=== PATIENT | female | born 1950 | race Caucasian/White ===

== ENCOUNTER 2023-09-13 12:00 | Emergency (ER) | payer MEDICARE, SELFPAY ==
[2023-09-13] VITALS (9 sets, daily range): BP systolic 129–132; BP diastolic 70–75; PULSE 48–67; RESP 16; TEMP 36.3; O2SAT 95–97; BMI 34.9
--- NOTE | 2023-09-13 12:35 | CT_ITS ---
Patient: JOSEPH SHIPLEY Facility:?[facility] Patient ID:?[id number] Site Patient ID:?[id number]. Site :?[id number] Study:?CT-Head WITHOUT-09/13/2023 1:17:02 PM Ordering Physician:?DR. QUEZADA Final Report: Indication: DIZZINESS. HX OF BLEED 2022 Technique: CT Head without IV contrast Comparison: None Findings: Brain Parenchyma: Global cortical involutional changes. No acute infarct, acute intracranial hemorrhage, mass effect or midline shift. Periventricular and supraventricular white matter hypodensity, suggestive of chronic microvascular ischemic changes. Ventricles: No hydrocephalus. Mild ventricular enlargement, commensurate with the degree of cortical involutional changes and sulcal prominence. Extra-axial Spaces: No abnormal fluid collection. Paranasal sinuses: No significant mucosal thickening. Orbits: Unremarkable. Mastoid Sinuses: Unremarkable. Cranium: No acute fracture. Soft tissues: Unremarkable. Impression: No evidence of an acute intracranial process. Please note that all CT scans at this facility use dose modulation, iterative reconstruction, and/or weight-based dosing when appropriate to reduce radiation dose to as low as reasonably achievable. Dictated by Eren East MD @ 09/13/2023 1:29:05 PM Signed by:?Eren East MD @09/13/2023 1:29:05 PM (Electronic Signature)
[2023-09-13 12:53] LABS: Appearance Urine Clear (Clear); Bilirubin Urine Negative (Negative); Blood Urine Negative (Negative); Color Urine Yellow (Yellow); Glucose Urine Negative (Negative); Ketones Urine Negative (Negative); Leukocyte Esterase Urine Negative (Negative); Nitrite Urine Negative (Negative); Protein Urine Negative (Negative); Urobilinogen Urine 0.2 (0.2-1.0); pH Urine 5.5 (5.0-8.5)
[2023-09-13 13:06] LABS: Basophils Absolute Auto 0.04 K/uL (0.00-0.30); Basophils Percent Auto 0.8 % (0.0-3.0); Eosinophils Absolute Auto 0.08 K/uL (0.00-0.50); Eosinophils Percent Auto 1.5 % (0.0-7.0); Hematocrit 46.4 % (33.0-51.0); Hemoglobin* 15.5 gm/dL (12.0-16.0); Immature Granulocytes Abs Auto 0.07 K/uL (0.00-0.30); Immature Granulocytes Pct Auto 1.3 %; Lymphocytes Absolute Auto 1.64 K/uL (0.90-2.90); Mean Corpuscular HGB Conc 33 gm/dL (32-36); Mean Corpuscular Hemoglobin 30 pg (26-34); Mean Corpuscular Volume 88 fL (80-100); Monocytes Percent Auto 8.9 % (0.0-11.0); Neutrophils Absolute Auto 2.99 K/uL (1.7-7.0); Neutrophils Percent Auto 56.5 % (42.0-72.0); Platelet Count* 279 K/uL (140-440); RDW Coefficient of Variation % 12.4 % (11.5-15.5); Red Blood Count 5.26 m/uL (4.00-5.20); White Blood Count* 5.29 K/uL (4.50-11.00)
[2023-09-13 13:14] LABS: Slide Review Reflex No
--- NOTE | 2023-09-13 13:15 | ED.GENADULT ---
HPI - General Adult General Date Seen: 09/13/23 Chief complaint: Unspecified Complaint, Adult Stated complaint: Nausea, dizzy, body aches Time Seen by Provider: 09/13/23 12:28 Source: patient Mode of arrival: ambulatory Limitations: no limitations History of Present Illness HPI narrative: Patient is a 72-year-old female presenting for multiple different symptoms. For the past several months she has been having nausea, body aches, headache, dizziness. Headache seems more to be on the right side but states for the past few days symptoms have been getting worse. She states she last saw her neurologist 3 weeks ago. Has been taking meclizine though tried help with the dizziness with no improvement. Does notice worsening symptoms when she is up and moving around. Has also been having memory issues for the past 4 months that her things is also getting worse. Does states she will wake up every few days and have large emesis. Has been otherwise eating and drinking all right. Has had multiple TBIs in the past with a hemorrhagic stroke several months ago but no recent falls that they are aware of. Patient denies chest pain, shortness of breath, abdominal pain, diarrhea, constipation, fevers, chills, weakness, numbness, vision changes. Related Data Previous Rx's Medication Instructions Recorded ondansetron 4 mg disintegrating 4 mg PO Q6H #20 tabs 09/13/23 tablet Allergies Allergy/AdvReac Type Severity Reaction Status Date / Time No Known Drug Allergies Allergy Verified 09/13/23 12:14 Review of Systems Status of ROS: Reports: 10 or more systems reviewed and unremarkable except as noted in History and below PFSH PFS Social History Smoking Status: Never smoker How often do you have a drink containing alcohol: never AUDIT-C Alcohol total score: 0 Non-prescribed substance use: denies use Exam Narrative: Exam Narrative: Const: Well-nourished, Well-developed, in mild distress Eyes: PERRL, no conjunctival injection, and symmetrical lids HENT: Atraumatic external nose and ears. Moist mucous membranes. Neck: Symmetric, trachea midline, No thyromegaly. CVS: RRR, No murmurs or gallops. Peripheral pulses 2+ and equal in all extremities RESP: Unlabored respiratory effort. Clear to auscultation bilaterally. GI: Nontender/Nondistended, No rebound or guarding. MSK:Extremities w/o deformity, Normal Active ROM Skin: Warm, Dry. No rashes or lesions. Neuro: Normal Muscle tone, No focal neurological deficits. Psych: Awake, Alert, & Oriented x3. Appropriate mood and affect. Const: Vital Signs, click to edit/add: Vital Signs - 24 hr 09/13/23 12:08 Temperature 97.3 F L Pulse Rate [Left P ulse Oximeter] 55 L Respiratory Rate 16 Blood Pressure [Ri ght Upper Arm] 132/75 Pulse Oximetry 95 Course Vital Signs Vital signs: Initial Vital Signs Temperature 97.3 F L 09/13/23 12:08 Temperature Source Temporal Artery Scan 09/13/23 12:08 Pulse Rate 55 L 09/13/23 12:08 Respiratory Rate 16 09/13/23 12:08 Blood Pressure 132/75 09/13/23 12:08 Blood Pressure Mean 94 09/13/23 12:08 Blood Pressure Position Sitting 09/13/23 12:08 Pulse Oximetry 95 09/13/23 12:08 Vital Signs Temperature 97.3 F L 09/13/23 12:08 Pulse Rate 55 L 09/13/23 12:08 Respiratory Rate 16 09/13/23 12:08 Blood Pressure 132/75 09/13/23 12:08 Pulse Oximetry 95 09/13/23 12:08 Temperature 97.3 F L 09/13/23 12:08 Pulse Rate 55 L 09/13/23 12:08 Respiratory Rate 16 09/13/23 12:08 Blood Pressure 132/75 09/13/23 12:08 Pulse Oximetry 95 09/13/23 12:08 Medications Administered Medications: Discontinued Medications Generic Name Dose Route Start Last Admin Trade Name Freq PRN Reason Stop Dose Admin Acetaminophen 1,000 mg 09/13/23 13:53 09/13/23 14:06 Acetaminophen 500 Mg Tablet PO 09/13/23 13:54 Not Given ONCE ONE Lactated Ringer's 1,000 mls @ 1,000 mls/hr 09/13/23 12:34 09/13/23 13:20 Lactated Ringers 1000 Ml IV 09/13/23 13:33 1,000 mls/hr .Q1H ONE Administration Ondansetron HCl 4 mg 09/13/23 12:34 09/13/23 13:20 Ondansetron 2 Mg/Ml Inj IVP 09/13/23 12:35 4 mg ONCE ONE Administration Medical Decision Making MDM Narrative Medical decision making narrative: Patient is a 72-year-old female presenting for multiple complaints. Is hard to say was causing his symptoms and they relatively they can could just be viral in nature. They do seem to be getting worse with her state. I will do a head CT to look for any signs of bleeding considering her previous hemorrhagic strokes. Will also do lab work the for signs infection including CBC, CMP, troponin, EKG. Seems unlikely to be ACS related but will evaluate. Urinalysis also ordered. COVID/flu/RSV ordered. She does have lots of issues with forgetfulness and does not have any diagnosis for dementia but states this has been going on for months now. Lab work all returned showing no concerning abnormalities. EKG shows sinus bradycardia but otherwise unremarkable. She did get a L of fluid because states she mentions she was feeling lightheaded before. She was having increased dizziness with head movement which makes me think this might be more of a peripheral vertigo . Symptoms have been ongoing and the even the worsening symptoms have been several days in the seems unlikely to be an ischemic stroke, and even if it was there would be nothing further for us to do considering time frame. Head CT showed no acute abnormalities. After the medications including Zofran she is now feeling better. I talked to her and her there comfortable with discharge home. They state they will follow up with her neurologist. Lab Data Labs: Lab Results 09/13/23 09/13/23 Range/Units 12:25 13:00 WBC 5.29 (4.50-11.00) K/uL RBC 5.26 H (4.00-5.20) m/uL Hgb 15.5 (12.0-16.0) gm/dL Hct 46.4 (33.0-51.0) % MCV 88 (80-100) fL MCH 30 (26-34) pg MCHC 33 (32-36) gm/dL RDW Coeff of Natalee 12.4 (11.5-15.5) % Plt Count 279 (140-440) K/uL Neut % (Auto) 56.5 (42.0-72.0) % Lymph % (Auto) 31.0 (20-44) % Forest % (Auto) 8.9 (0.0-11.0) % Eos % (Auto) 1.5 (0.0-7.0) % Baso % (Auto) 0.8 (0.0-3.0) % Neut # (Auto) 2.99 (1.7-7.0) K/uL Lymph # (Auto) 1.64 (0.90-2.90) K/uL Forest # (Auto) 0.50 (0.00-0.90) K/UL Eos # (Auto) 0.08 (0.00-0.50) K/uL Baso # (Auto) 0.04 (0.00-0.30) K/uL Abs Immat Gran (auto) 0.07 (0.00-0.30) K/uL Imm/Tot Granulo (auto) 1.3 % Sodium 139 (135-149) mmol/L Potassium 4.2 (3.6-5.1) mmol/L Chloride 107 (96-114) mmol/L Carbon Dioxide 25 (20-32) mmol/L Anion Gap 7 (7-15) mEq/L BUN 12 (7-30) mg/dL Creatinine 0.6 (0.5-1.5) mg/dL Estimated Creat Clear 45.09 Estimated GFR 95 ml/min Glucose 99 (60-115) mg/dL Calcium 9.5 (8.4-10.6) mg/dL Magnesium 2.1 (1.5-2.6) mg/dL Total Bilirubin 0.7 (0.1-1.5) mg/dL AST 26 (12-35) U/L ALT 27 (4-35) U/L Alkaline Phosphatase 72 (40-150) U/L Troponin I < 0.01 L (0.01-0.04) ng/mL Total Protein 7.0 (6.0-8.3) g/dL Albumin 4.3 (3.3-5.0) g/dL Urine Color Yellow (Yellow) Urine Appearance Clear (Clear) Urine pH 5.5 (5.0-8.5) Ur Specific [place]ez 1.010 (1.000-1.030) Urine Protein Negative (Negative) Urine Glucose (UA) Negative (Negative) Urine Ketones Negative (Negative) Urine Blood Negative (Negative) Urine Nitrite Negative (Negative) Urine Bilirubin Negative (Negative) Urine Urobilinogen 0.2 (0.2-1.0) Ur Leukocyte Esterase Negative (Negative) SARS-CoV-2 (PCR) Negative SARS-CoV-2 (Negative) Influenza Type A (PCR) Negative PCR FLU A (Negative) Influenza Type B (PCR) Negative PCR FLU B (Negative) RSV (PCR) Negative PCR RSV (Negative) Imaging Data CT scan - head: Radiologist's impression: No evidence of an acute intracranial process. Please note that all CT scans at this facility use dose modulation, iterative reconstruction, and/or weight-based dosing when appropriate to reduce radiation dose to as low as reasonably achievable. Dictated by Eren East MD @ 09/13/2023 1:29:05 PM ECG Data Attestation: I personally reviewed and interpreted this ECG as follows: Prior ECG tracings: not available for review Interpretation: Sinus bradycardia with a rate of 57 beats per minute, normal intervals, normal axis, no ST or T-wave abnormalities Discharge Plan Discharge Clinical Impression: Dizziness Patient Disposition: Home, Self-Care Condition: Improved Instructions: Dizziness (ED) Additional Instructions: I would follow-up with the neurologist and let them know your symptoms are worsening. Zofran was given for nausea and take it as needed. Return to emergency department for new or worsening symptoms. Prescriptions: New ondansetron 4 mg tablet,disintegrating 4 mg PO Q6H Qty: 20 0RF Follow Up/Referrals: Provider,Not a Local [Primary Care Provider] - Stand Alone Forms: [employer] Info Instructions
[2023-09-13 13:19] LABS: Albumin* 4.3 g/dL (3.3-5.0)
[2023-09-13 13:20] LABS: Chloride* 107 mmol/L (96-114); Potassium* 4.2 mmol/L (3.6-5.1); Sodium* 139 mmol/L (135-149)
[2023-09-13] MEDS: LACTATED RINGERS 1000 ML 1,000 ML IV (13:20)
[2023-09-13] MEDS: ONDANSETRON 2 MG/ML inj 4 MG IVP (13:20)
[2023-09-13 13:22] LABS: Anion Gap 7 mEq/L (7-15); Aspartate Amino Transferase* 26 U/L (12-35); Bilirubin Total* 0.7 mg/dL (0.1-1.5); Carbon Dioxide* 25 mmol/L (20-32); Creatinine* 0.6 mg/dL (0.5-1.5); Est. Creatinine Clearance* 45.09; Estimated Glomerular Filt Rate 95 ml/min
[2023-09-13 13:23] LABS: Alanine Aminotransferase* 27 U/L (4-35); Alkaline Phosphatase* 72 U/L (40-150); Blood Urea Nitrogen* 12 mg/dL (7-30); Calcium* 9.5 mg/dL (8.4-10.6); Glucose* 99 mg/dL (60-115); Magnesium* 2.1 mg/dL (1.5-2.6)
[2023-09-13 13:37] LABS: Troponin I* < 0.01 ng/mL (0.01-0.04)
[2023-09-13 13:45] LABS: PCR FLU A Negative PCR FLU A (Negative); PCR FLU B Negative PCR FLU B (Negative); PCR RSV Negative PCR RSV (Negative); SARS PCR* Negative SARS-CoV-2 (Negative)
== END 2023-09-13 15:15 | disposition home or self-care (01) ==
PROVIDERS: Emergency Provider Student in an Organized Health Care Education/Training Program
DX: R42 Dizziness and giddiness (principal)
CPT/HCPCS: 36415; 70450; 80053; 81003; 83735; 84484; 85025; 87631; 93005; 96374; 99283; 99284; J2405; J7120